=== PATIENT | female | born 1960 | race Hispanic/Latino ===

== ENCOUNTER → 2018-01-10 | Outpatient (CLI) | payer MEDICARE ==
--- NOTE | 2018-01-10 22:52 | Diagnostic Imaging Report ---
EXAMINATION: MRI of the cervical spine without contrast HISTORY: Neck pain, dizziness COMPARISON: None available TECHNIQUE: Sagittal T1, T2, STIR; axial T2, gradient echo. FINDINGS: Curvature: Normal lordosis. Vertebrae: No evidence of neoplasm, infection, or fracture. Foramen magnum: No mass, Chiari malformation, or basilar invagination. Spinal Cord: Normal size and signal intensity. Soft Tissues: Unremarkable. Degenerative changes: C1-C2: Unremarkable. C2-C3: Facet arthroses mainly on the right without canal or foraminal stenoses. C3-C4: Small disc osteophyte complex formation, mild uncovertebral and facet osteoarthrosis. Mild canal stenosis. No foraminal stenoses. C4-C5: Small difficult to 5 complex formation, mild uncovertebral facet arthrosis. Mild spinal canal stenosis. No significant foraminal stenosis. C5-C6: Disc osteophyte complex formation, a lateral uncovertebral and facet arthroses. Mild spinal canal and bilateral foraminal stenosis. C6-C7: Symmetric disc pole and facet retrolisthesis. Mild canal stenosis. Minimal foraminal narrowing. C7-T1: Unremarkable. IMPRESSION: 1. Mild degenerative spinal canal stenosis from C3-C4 through C6-C7. 2. Minimal degenerative foraminal stenosis at C5-C6 and C6-C7. Signed by: Dr. Florence Jin M.D. on 01/10/2018 10:49 PM
== END ==
LOC: MRI 10:08
PROVIDERS: ATTEND Internal Medicine Cardiovascular Disease
DX: R07.89 Other chest pain (principal); M54.2 Cervicalgia
CPT/HCPCS: 72141

== ENCOUNTER → 2019-04-28 | Outpatient (CLI) | payer MEDICARE, OTHER ==
[~2019-04-28] MED LIST: DIATRIZOATE MEGL/DIATRIZOA SOD 30 ML BTL PO ONE; IOPAMIDOL 370 MG/ML 200 ML INFUS..BTL INJ ONE; SODIUM CHLORIDE 0.9% 50ML 50 ML ONE
[2019-04-28 11:39] LABS: BLOOD UREA NITROGEN 17 mg/dL (7-26); BUN/CREATININE RATIO 20 (6-25); CREATININE, SERUM 0.87 mg/dL (0.57-1.11); EST GLOMERULAR FILTRATION RATE > 60 ML/MIN (60-)
--- NOTE | 2019-04-28 13:06 | Diagnostic Imaging Report ---
CT of the abdomen and pelvis, with contrast, 04/28/2019. History: Lower abdominal pain. Comparison: None available. Technique: Multidetector CT scanning of the abdomen and pelvis was performed from the level of the lung bases to the inferior pubic rami after intravenous and oral administration of contrast. Coronal and sagittal multiplanar reformations were obtained. RADIATION DOSE: Total DLP: 565 mGy*cm Dose modulation, iterative reconstruction, and/or weight based adjustment of the mA/kV was utilized to reduce the radiation dose to as low as reasonably achievable. Discussion: LUNG BASES: No visualized abnormalities. ABDOMEN: Cholecystectomy clips are present. The liver, biliary tree, spleen, pancreas, adrenal glands, and kidneys are normal. The hepatic vein, portal vein, and splenic vein are patent. The abdominal aorta is within normal limits for size. The stomach, small bowel, and large bowel are unremarkable. The appendix is visualized and is normal. There is no evidence of diverticulosis or diverticulitis. There is no evidence of adenopathy or free fluid. PELVIS: Evaluation is limited due to metallic streak artifact from bilateral hip replacement. The bladder is unremarkable. The uterus is not visualized. There is no evidence of free fluid or adenopathy. BONES AND SOFT TISSUES: Degenerative changes are present throughout the lumbar spine without evidence of lytic or sclerotic lesion. Bilateral hip replacement is noted. IMPRESSION: Status post cholecystectomy and hysterectomy. Otherwise unremarkable CT of the abdomen and pelvis. No evidence of appendicitis or diverticulitis. Signed by: Chau Durbin on 04/28/2019 1:02 PM
== END ==
LOC: CT 10:29
PROVIDERS: ATTEND Internal Medicine
DX: K57.92 Diverticulitis of intestine, part unspecified, without perforation or abscess without bleeding (principal)
CPT/HCPCS: 36415; 74177; 82565; 84520; Q9967